=== PATIENT | female | born 1975 | race Caucasian/White ===

== ENCOUNTER → 2018-01-07 | Outpatient (CLI) | payer OTHER ==
[~2018-01-07] MED LIST: CETI10TA22 PO
[2018-01-07 14:38] LABS: BILIRUBIN,URINE NEGATIVE (NEG); CLARITY,URINE CLEAR; NITRITE,URINE NEGATIVE (NEG); PH,URINE 6.5; PROTEIN,URINE NEGATIVE (NEG-TRACE); UROBILINOGEN,URINE 0.2 mg/dL (0.2 mg/dL)
[2018-01-07 14:50] LABS: COLOR,URINE STRAW
[2018-01-07 14:52] LABS: BACTERIA,URINE FEW /HPF (0-FEW); RBC,URINE 0 /HPF (0-2); SQUAMOUS EPITHELIAL CELL,UR OCC /LPF; WBC,URINE 0 /HPF (0-4)
[2018-01-07 14:56] LABS: BASO # 0.1 x10^3/uL (0.0-0.2); BASO % 1 % (0-3); EOS # 0.1 x10^3/uL (0.0-0.7); EOS % 1 % (0-3); HEMATOCRIT 39.8 % (36.0-47.0); HEMOGLOBIN 13.8 g/dL (12.0-15.5); LYMPH # 2.1 x10^3/uL (1.0-4.8); LYMPH % 31 % (24-48); MEAN CORPUSCULAR HEMOGLOBIN 33 pg (25-35); MEAN CORPUSCULAR HGB CONC 35 g/dL (31-37); MEAN CORPUSCULAR VOLUME 96 fL (79-100); MONO # 0.4 x10^3/uL (0.0-1.1); MONO % 6 % (0-9); NEUT # 4.3 x10^3uL (1.8-7.7); NEUT % 61 % (31-73); PLATELET COUNT 215 x10^3/uL (140-400); RED BLOOD COUNT 4.13 x10^6/uL (3.50-5.40); RED CELL DISTRIBUTION WIDTH 13.3 % (11.5-14.5)
[2018-01-07 15:09] LABS: CALCIUM 9.1 mg/dL (8.5-10.1); CREATININE 0.7 mg/dL (0.6-1.0); GFR 91.8; POTASSIUM 3.7 mmol/L (3.5-5.1)
[2018-01-07 15:14] LABS: ALBUMIN 4.1 g/dL (3.4-5.0); ALBUMIN/GLOBULIN RATIO 1.1 (1.0-1.7); TOTAL BILIRUBIN 0.4 mg/dL (0.2-1.0)
== END | disposition home or self-care (01) ==
LOC: EDSTATUS 13:30 → SURG 13:50
PROVIDERS: ATTEND Obstetrics & Gynecology
DX: Z01.812 Encounter for preprocedural laboratory examination (principal)
CPT/HCPCS: 36415; 80053; 81001; 85025

== ENCOUNTER 2018-01-16 06:10 | Observation (INO) | payer OTHER ==
[2018-01-16] VITALS (8 sets, daily range): BP systolic 101–118; BP diastolic 62–71
[~2018-01-16] VITALS: Ht 172.7 cm; Wt 82.6 kg
[2018-01-16 06:31] LABS: U PREG PATIENT NEGATIVE (NEG)
[2018-01-16] MEDS ORDERED: METHYLENE BLUE 1% 10 ML VIAL. ONE ×2 (06:56→06:57)
[2018-01-16] MEDS ORDERED: ESTROGENS, CONJ VAGINAL CREAM 30GM TUBE. ONE (06:56)
[2018-01-16] MEDS ORDERED: BUPIVAC MPF-EPI 0.5%-1:200000 30 ML VIAL. ONE (06:56)
[2018-01-16] MEDS ORDERED: PROCHLORPERAZINE 10 MG/2 ML VIAL. IV PRN (07:00)
[2018-01-16] MEDS ORDERED: IV RINGERS,LACTATED 1000ML 1,000 ML IV SCH (07:00)
[2018-01-16] MEDS ORDERED: ONDANSETRON PF 4 MG/2 ML VIAL. IV PRN ×2 (07:00→09:00)
[2018-01-16] MEDS ORDERED: fentaNYL PF VIAL 100 MCG/2 ML VIAL IV PRN ×2 (07:00)
[2018-01-16] MEDS ORDERED: MORPHINE SULFATE 2 MG/ML VIAL. IV PRN (07:00)
[2018-01-16] MEDS ORDERED: LIDOCAINE 1% PF 2 ML VIAL. ID PRN (07:00)
[2018-01-16] MEDS ORDERED: HYDROmorphone 2 MG/ML VIAL IV PRN (07:00)
[2018-01-16] MEDS ORDERED: ROCURONIUM 50 MG/5 ML VIAL. ONE (07:15)
[2018-01-16] MEDS ORDERED: MIDAZOLAM HCL/PF 2 MG/2 ML VIAL. ONE (07:15)
[2018-01-16] MEDS ORDERED: fentaNYL PF VIAL 250 MCG/5 ML VIAL ONE (07:16)
[2018-01-16] MEDS ORDERED: ONDANSETRON PF 4 MG/2 ML VIAL. ONE (08:12)
[2018-01-16] MEDS ORDERED: DEXAMETHASONE SOD PHOS 20 MG/5 ML VIAL. ONE (08:12)
[2018-01-16] MEDS ORDERED: LIDOCAINE 2% PF Vial for OR 5 ML VIAL. ONE (08:12)
[2018-01-16] MEDS ORDERED: PROPOFOL 20 ML IV ONE (08:12)
[2018-01-16] MEDS ORDERED: GLYCOPYRROLATE 1 MG/5 ML VIAL. ONE (08:57)
[2018-01-16] MEDS ORDERED: NEOSTIGMINE METHYLSULFATE 5 MG/5 ML SYRINGE. ONE (08:57)
[2018-01-16] MEDS ORDERED: MAGNESIUM HYDROXIDE 2,400 MG/30 ML ORAL.SUSP. PO PRN (09:00)
[2018-01-16] MEDS ORDERED: diphenhydrAMINE HCL 25 MG CAPSULE PO PRN (09:00)
[2018-01-16] MEDS ORDERED: ZOLPIDEM 5 MG TABLET. PO PRN (09:00)
[2018-01-16] MEDS ORDERED: MAG HYDROX/ALUMINUM HYD/SIMETH 30 ML ORAL.SUSP PO PRN (09:00)
[2018-01-16] MEDS ORDERED: diphenhydrAMINE 50 MG/ML VIAL IV PRN (09:00)
[2018-01-16] MEDS ORDERED: MORPHINE SULFATE 4 MG/ML VIAL. IV PRN (09:00)
[2018-01-16] MEDS ORDERED: NALOXONE 0.4 MG/ML VIAL. IV PRN (09:00)
[2018-01-16] MEDS ORDERED: SIMETHICONE 80 MG TAB.CHEW PO PRN (09:00)
[2018-01-16] MEDS ORDERED: 0.9 % SODIUM CHLORIDE 10 ML DISP.SYRIN. IV PRN (09:00)
[2018-01-16] MEDS ORDERED: CALCIUM CARBONATE 500 MG TAB.CHEW PO PRN (09:00)
[2018-01-16] MEDS ORDERED: LACTULOSE 20 GM/30 ML SOLUTION. PO PRN (09:00)
[2018-01-16] MEDS ORDERED: SEVOFLURANE 61 TO 120 MINUTES. IH ONE (09:03)
[2018-01-16] MEDS ORDERED: PROCHLORPERAZINE 10 MG/2 ML VIAL. ONE (09:10)
--- NOTE | 2018-01-16 09:11 | PDOC ---
BRIEF OPERATIVE NOTE Date: Jan 16, 2018 Pre-Op Diagnosis RODDY 3 Post-Op Diagnosis same Procedure Performed LAVH/bilateral salpingectomy Surgeon Dr. Espinoza [employer] Attorney JESSEE Voss Anesthesiologist Dr. Shane Anesthesia Type: General Blood Loss 50cc IV Fluid 1200cc Urine Output 150cc clear via wu Specimens Obtained cervix, uterus, bilateral tubes Findings small uterus, normal bilateral tube and ovaries, normal follicular 1cm cyst on left ovary, umbilical adhesions under prior hernia repair Complications none Operative Note [id number] TONIO ESPINOZA MD Jan 16, 2018 09:11
[2018-01-16] MEDS ORDERED: KETOROLAC 30 MG/ML VIAL. ONE (09:53)
--- NOTE | 2018-01-16 10:32 | OP ---
DATE OF SURGERY: 01/16/2018 PREOPERATIVE DIAGNOSIS: RODDY 3. POSTOPERATIVE DIAGNOSIS: RODDY 3. PROCEDURE: Laparoscopic-assisted vaginal hysterectomy, bilateral salpingectomy. SURGEON: Tonio Espinoza MD BEAN SNIPPER: Yulissa Barker RN, assisted living director. ANESTHESIOLOGIST: Dr. Sourav Shane. ANESTHESIA: General endotracheal. ESTIMATED BLOOD LOSS: 50 mL. URINE OUTPUT: 150 mL, clear via Simmons catheter. IV FLUIDS: 1200 mL of crystalloid. SPECIMENS: Cervix, uterus and bilateral tubes. FINDINGS: A small uterus, normal bilateral tubes and ovaries, an incidental 1 cm follicular cyst on the left ovary that was left alone. She did have an umbilical adhesion under her prior hernia repair. This area was avoided. We knew she had a prior repair there with mesh, so a left upper quadrant entry was done, so this area was left completely alone. COMPLICATIONS: None. DESCRIPTION OF PROCEDURE: This patient was taken to the operating room where general anesthesia was placed. The patient was placed in the dorsal lithotomy position in Loy stirrups. The patient's abdomen and vagina were prepped and draped in the normal sterile fashion and a Simmons catheter had been inserted under sterile technique. Upon my arrival, a timeout was performed. Once everyone agreed, a bivalve speculum was placed in the patient's vagina. A single-tooth tenaculum was used to grasp the anterior lip of the cervix. A 10 mL of 0.25% Marcaine with epinephrine was used to circumferentially inject around the cervix for both hemodissection and hemostatic purposes later. The Valtchev uterine manipulator was placed through the endocervical os, locked on the single tooth tenaculum and the bivalve speculum was then removed. Top gloves were discarded and changed and attention was turned to the abdomen where a left upper quadrant midclavicular below the breast bone, 1-2 cm below the rib cage, a small incision was made. A curved Karmen was used to dissect through the subcuticular layer to the fascia. The 5 mm Visiport was used to directly enter the abdominal cavity. Opening patient pressure was 3-4 mmHg. Direct abdominal placement was confirmed via the laparoscope, you could see the umbilical adhesions immediately, but carbon dioxide gas was used to then appropriately insufflate the abdominal cavity to maintain a pressure of 15 mmHg. The patient was placed in Trendelenburg position where right and left lower quadrant ports were placed under direct visualization. Finding an area clear and then using the scope to transilluminate the abdominal cavity and making sure there was no vasculature, a small incision and placing the 5 mm disposable atraumatic ports under direct visualization without difficulty. At this point, the scope was moved to look at the left upper quadrant. It was also clear. All three of the trocar little balloons were insufflated with 2 mL of air and then the procedure was started. First the left tube and ovary were elevated. There was a 1 cm incidental follicular cyst, but a normal ovary, so the tube was elevated. I did do a bilateral salpingectomy with the LigaSure, cauterizing and cutting above the ovary below the tube, then crossing the left round ligament as well and the left uterine ovarian pedicle. The bladder flap was created sharply. The [place] was used to elevate the bladder flap. Monopolar hook was used to cauterize across it and it was peeled down very nicely. At this point, exactly the same thing was done on the right, elevating the right tube and ovary, which was normal, going below the tube above the ovary, doing a salpingectomy with the LigaSure, cauterizing and cutting crossing the right round ligament, the right utero-ovarian pedicle and going down and meeting that bladder flap anteriorly. So at this point, the uterine vessels were obtained on both sides and going down through the cardinal and broad ligaments to the level of the uterosacrals. The uterus was completely free and blanched and the vasculature had been obtained, so everything was removed from the abdomen. Attention was turned vaginally where the single tooth and Valtchev were removed. A weighted speculum was placed in the patient's vagina. Thyroid Linsey clamps were placed on the anterior and posterior lips of the cervix respectively. A scalpel was used to make a circumferential incision in the cervix. An open Ray-Sarina and 4 x 4 was used to gently push up the anterior bladder peritoneum and the anterior cul-de-sac was digitally and bluntly entered. The Ray-Sarina was passed off and the curved Mableton was placed in the anterior cul-de-sac. Gas did return. At this point, the cervix was elevated and the posterior cul-de-sac was sharply entered and stretched with Jones scissors. A #0 Vicryl stitch was used to secure the posterior peritoneum here to the vaginal cuff, was tagged with a curved Karmen clamp, needle was cut and passed off. The short weighted speculum was removed and replaced with the long weighted Nathalia speculum in the posterior cul-de-sac. Curved Mason clamps x 2 were placed on the patient's left uterosacral ligament where they were doubly clamped with curved Heaneys, cut with Jones scissors and suture ligated x 2 with 0 Vicryl. Second one was taken through the vaginal cuff securing uterosacral ligament to the vaginal cuff, tagged with a straight Karmen clamp and needle was cut and passed off. This was done exactly the same on the right side, double clamping the uterosacrals with curved Mason's, cutting with Jones scissors, suture ligating x 2 with 0 Vicryl, taking the second one through the vaginal cuff, tagging it with a straight Karmen clamp and cutting and passing the needle off. The remaining pedicle on the left side was delineated with a right angle clamp. Vaginal LigaSure was used to cauterize and cut. The right side was completely free. Cervix, uterus and bilateral tubes were delivered. The right tube was actually detached during the manipulation, so it was , but the cervix, uterus and left tube were attached, right tube came out, but was detached. A long Allis was used to grasp the anterior bladder peritoneum. A sponge stick was used to examine the pedicles. The long weighted Nathalia speculum was removed and replaced with the short weighted vaginal speculum. A 2-0 Vicryl was taken through the anterior bladder peritoneum, left uterosacral ligament, posterior peritoneum and right uterosacral ligament thus closing the peritoneum in a pursestring like fashion. Once this was done, the right and left uterosacral tags were clipped as well and a full length 2-0 Vicryl was used to close the cuff in an anterior to posterior running locked fashion and tied to that posterior cuff tag. A sponge stick was used to examine the vaginal cuff and it was completely hemostatic. So at this point, everything was removed from the vagina. All initial counts were correct down here. The legs were placed back down. All gloves were discarded and changed. A second look was done from above where she was reinsufflated and placed back in Trendelenburg. Copious irrigation revealed hemostasis. Tisseel was placed over the pedicles. The right and left pericolic gutters were clear. So the right and left lower quadrant ports, the balloons were deflated, they came out under direct visualization. They were hemostatic. Gas was released from that left upper quadrant port, its cuff was deflated as well and then once it was removed all three port sites were closed with 4-0 nylon at the skin and injected with local. The patient was awakened from anesthesia and brought to recovery room in stable condition. TONIO ESPINOZA MD DR: JU/ino JOB#: [id number] / [id number]
[2018-01-16] MEDS: oxyCODONE/APAP 5/325 1 TAB TABLET PO PRN ×2 (14:23→18:21)
[2018-01-17] MEDS: HYDROcodone/APAP 5/325MG 1 TAB TABLET PO PRN ×2 (03:27→08:58)
[2018-01-17 06:07] LABS: CALCIUM 8.6 mg/dL (8.5-10.1); CREATININE 0.8 mg/dL (0.6-1.0); GFR 78.7; POTASSIUM 3.8 mmol/L (3.5-5.1)
[2018-01-17 06:09] VITALS: BP 96/64
--- NOTE | 2018-01-17 08:48 | PDOC ---
SURGICAL PROGRESS NOTE Subjective Doing well just gas pains. Tolerating liquids, oral pain pills, ambulating well and voiding without catheter. Just gas pains Vital Signs Vital Signs Date Time Temp Pulse Resp B/P (MAP) Pulse Ox O2 Delivery O2 Flow Rate FiO2 01/17/18 06:09 97.7 72 16 96/64 (75) 90 97.7 01/16/18 19:18 Room Air 01/16/18 14:23 6.0 I&O Intake and Output 01/17/18 07:00 Intake Total 2550 ml Output Total 1210 ml Balance 1340 ml Intake Oral 1200 ml IV Total 1350 ml Output Urine Total 1160 ml Estimated Blood Loss 50 ml PATIENT HAS A PHAN: No General: Alert, Oriented X3, Cooperative, mild distress HEENT: Atraumatic Heart: Regular rate Abdomen: Soft, No tenderness, No masses, Other (all port sites c/d/i) Extremities: No clubbing, No cyanosis, No edema, No tenderness/swelling Skin: No rashes, No significant lesion Neuro: Normal speech Psych/Mental Status: Mental status NL, Mood NL Labs Laboratory Tests Test 01/16/18 06:20 01/17/18 05:20 Urine Test Negative (NEG) Hematocrit 36.3 % (36.0-47.0) Sodium Level 139 mmol/L (136-145) Potassium Level 3.8 mmol/L (3.5-5.1) Chloride Level 105 mmol/L (98-107) Carbon Dioxide Level 29 mmol/L (21-32) Anion Gap 5 (6-14) Blood Urea Nitrogen 9 mg/dL (7-20) Creatinine 0.8 mg/dL (0.6-1.0) Estimated GFR (Cockcroft-Gault) 78.7 Glucose Level 107 mg/dL (70-99) Calcium Level 8.6 mg/dL (8.5-10.1) Laboratory Tests Test 01/17/18 05:20 Hematocrit 36.3 % (36.0-47.0) Sodium Level 139 mmol/L (136-145) Potassium Level 3.8 mmol/L (3.5-5.1) Chloride Level 105 mmol/L (98-107) Carbon Dioxide Level 29 mmol/L (21-32) Anion Gap 5 (6-14) Blood Urea Nitrogen 9 mg/dL (7-20) Creatinine 0.8 mg/dL (0.6-1.0) Estimated GFR (Cockcroft-Gault) 78.7 Glucose Level 107 mg/dL (70-99) Calcium Level 8.6 mg/dL (8.5-10.1) I have reviewed the following labs, vitals, nursing Cardiovascular: No pertinent hx Pulmonary: No pertinent hx GI: No pertinent hx Heme/Onc: No pertinent hx Psych: No pertinent hx Infectious disease: No pertinent hx ENT: No pertinent hx Renal/: No pertinent hx Endocrine: No pertinent hx Dermatology: No pertinent hx Problem List RODDY 3 Assessment/Plan POD#1 s/p LAVH/bilateral salpingectomy Routine PO care d/c to home NPV x 6 weeks light/limited x 2 weeks keep scheduled follow up with me in one week already has narcotic pain pills at home call or return sooner for any questions or concerns not limited to but including pain unrelieved with pain meds, increased or unexplained vaginal bleeding or T>100.4 TONIO GIMENEZ MD Jan 17, 2018 08:48
--- NOTE | 2018-01-17 08:49 | PDOC3 ---
Discharge Summary Visit Information Date of Admission: Jan 16, 2018 Date of Discharge: Jan 17, 2018 Final Diagnosis RODDY 3 Brief Hospital Course Allergies Allergies Coded Allergies Type Severity Reaction Last Updated Verified ibuprofen Adverse Reaction Intermediate Nausea and Vomiting 01/16/18 Yes Vital Signs Vital Signs Date Time Temp Pulse Resp B/P (MAP) Pulse Ox O2 Delivery O2 Flow Rate FiO2 01/17/18 06:09 97.7 72 16 96/64 (75) 90 97.7 01/16/18 19:18 Room Air 01/16/18 14:23 6.0 Lab Results Laboratory Tests Test 01/16/18 06:20 01/17/18 05:20 Urine Test Negative (NEG) Hematocrit 36.3 % (36.0-47.0) Sodium Level 139 mmol/L (136-145) Potassium Level 3.8 mmol/L (3.5-5.1) Chloride Level 105 mmol/L (98-107) Carbon Dioxide Level 29 mmol/L (21-32) Anion Gap 5 (6-14) Blood Urea Nitrogen 9 mg/dL (7-20) Creatinine 0.8 mg/dL (0.6-1.0) Estimated GFR (Cockcroft-Gault) 78.7 Glucose Level 107 mg/dL (70-99) Calcium Level 8.6 mg/dL (8.5-10.1) Laboratory Tests Test 01/17/18 05:20 Hematocrit 36.3 % (36.0-47.0) Sodium Level 139 mmol/L (136-145) Potassium Level 3.8 mmol/L (3.5-5.1) Chloride Level 105 mmol/L (98-107) Carbon Dioxide Level 29 mmol/L (21-32) Anion Gap 5 (6-14) Blood Urea Nitrogen 9 mg/dL (7-20) Creatinine 0.8 mg/dL (0.6-1.0) Estimated GFR (Cockcroft-Gault) 78.7 Glucose Level 107 mg/dL (70-99) Calcium Level 8.6 mg/dL (8.5-10.1) Brief Hospital Course Ms. Lovett is a 42 old female who presented with RODDY 3. She underwent an LAVH /bilateral salpingectomy yesterday without complications. She has had an unremarkable postoperative course. She is tolerating liquids, PO pain meds, voiding without catheter and ambulating well Discharge Information Condition at Discharge: Improved Follow Up: Weeks Disposition/Orders: D/C to Home Scheduled PRN Cetirizine Hcl (Zyrtec) 10 Mg Tablet, 1 TAB PO DAILY PRN for ALLERGIES, #30 Ref 2 (Reported) Entered as Reported by: HEMANT CABALLERO on 01/07/18 1423 Last Taken: Unknown Dose on 01/15/18 Last Action: HELD on 01/16/18921 by TONIO GIMENEZ Patient Instructions Patient Instructions POD#1 s/p LAVH/bilateral salpingectomy Routine PO care d/c to home NPV x 6 weeks light/limited x 2 weeks keep scheduled follow up with me in one week already has narcotic pain pills at home call or return sooner for any questions or concerns not limited to but including pain unrelieved with pain meds, increased or unexplained vaginal bleeding or T>100.4 TONIO GIMENEZ MD Jan 17, 2018 08:49
--- NOTE | 2018-01-18 14:11 | PATHOLOGY ---
[facility] Accession Number: [id number] . 01 Material submitted: . UTERUS, CERVIX, AND BILATERAL FALLOPIAN TUBES . 01 Clinical history: . RODDY III . 02 Diagnosis: Uterus and attached left fallopian tube and detached right fallopian tube, laparoscopic-assisted vaginal hysterectomy with bilateral salpingectomy: - No residual RODDY III identified. - Status post LEEP conization of cervix with reactive fibrosis and focal hemosiderin-laden macrophages and chronic inflammation. - Chronic cervicitis with focal immature and atypical squamous metaplasia. - Tubal metaplasia of endocervix, focal. - Proliferative endometrium. - Congestion of bilateral fallopian tubes. . (JPM:mml; 01/18/18) [facility]/01/18/2018 . 02 Electronically signed: . Gustavo Jane MD, Pathologist NPI- [id number] . 01 Gross description: . The specimen is received in formalin, labeled "Crystal Lovett, uterus, cervix, bilateral fallopian tubes" and consists of a 59 g uterus with attached cervix measuring 7.3 x 4.3 x 3.4 cm. There is attached left fimbriated fallopian tube (5.7 cm in length and 0.4 cm in diameter) and detached right fimbriated fallopian tube (6.8 cm in length and 0.4 cm in diameter). The uterine serosa is sanchez-brown, smooth, shiny. The gaping 0.8 cm cervical os is surrounded by discolored dark purple/hemorrhagic ectocervical mucosa. The specimen is bivalved to reveal a partially hemorrhagic endocervical canal measuring 2.3 cm. The endometrial cavity is triangular measuring 3.0 cm in length and 2.1 cm in width which is lined by a hemorrhagic pink-red endometrium measuring 0.1-0.2 cm. The cervix is amputated, radially sectioned, and entirely submitted. The uterine corpus is further serially sectioned to reveal a pink-sanchez myometrium measuring up to 2.0 cm with no nodules or mass lesions. . Both segments of fimbriated fallopian tube are purple-mendoza, smooth, and shiny. Sectioning each reveals a central lumen and no gross lesions. Rhinestone Setter sections are submitted as follows: . A1-A2: 12-3:00 cervix A3-A4: 3-6:00 cervix A5-A6: 6-9:00 cervix A7-A8: 9-12:00 cervix A9: Anterior endomyometrium A10: Posterior endomyometrium A11: Right fallopian tube A12: Left fallopian tube (SDY; 01/17/2018) SYU/SYU . 02 Pathologist provided ICD-10: D06.9, N72, N87.9 . 02 CPT . 769036 Specimen Comment: A courtesy copy of this report has been sent to Specimen Comment: [phone]. Specimen Comment: Report sent to Specimen Comment: A duplicate report has been generated due to demographic updates. Performed at: 01 [facility] [address], [place] [id number] MD Parth Veliz MD Phone: [phone] Performed at: 02 [facility] [address], [place] [id number] MD Gustavo Jane MD Phone: [phone]
== END 2018-01-17 09:42 | disposition home or self-care (01) ==
LOC: SURG 06:10 → 3 NORTH 09:52
PROVIDERS: ADMIT Obstetrics & Gynecology; ATTEND Obstetrics & Gynecology
DX: D06.9 Carcinoma in situ of cervix, unspecified (principal); N72 Inflammatory disease of cervix uteri; N87.9 Dysplasia of cervix uteri, unspecified; N83.02 Follicular cyst of left ovary; K66.0 Peritoneal adhesions (postprocedural) (postinfection)
CPT/HCPCS: 36415; 58552; 80048; 81025; 85014; 86850; 86900; 86901; 88309; 96374; A7015; G0378; G0379; J0690; J0780; J1100; J2001; J2250; J2270; J2405; J2704; J2710; J3010; J3490; J7030; J7120; Q9968